=== PATIENT | male | born 1955 | race Caucasian/White ===

== ENCOUNTER 2023-12-01 15:10 | Inpatient (IN) | payer MEDICARE, OTHER ==
--- NOTE | 2023-12-01 15:34 | ED ---
General Adult HPI - General Chief complaint: Shortness of Breath Stated complaint: Abn Labs Time Seen by Provider: 12/01/23 15:15 Source: patient, EMS, RN notes reviewed, old records reviewed Mode of arrival: EMS Limitations: no limitations - History of Present Illness Initial comments: This 68-year-old male has a past medical history significant for COPD. Patient dates the last few days he has been having some difficulty breathing so he went to [facility] and they diagnosed him with pneumonia and a possible neoplasm. Patient states he was given a breathing treatment and steroids here and antibiotics and he is feeling somewhat better. Patient denies any chest pain or palpitations. Patient denies any fever or chills. Patient Nu[place] any back pain. Patient has abdominal pain patient has nausea vomiting diarrhea patient denies any calf tenderness or pedal edema - Related Data Home Medications Medication Instructions Recorded Confirmed Ibuprofen [Advil] 200 mg PO Q6HR PRN 12/02/13 12/03/13 Allergies Allergy/AdvReac Type Severity Reaction Status Date / Time No Known Allergies Allergy Verified 12/01/23 15:19 Review of Systems ROS Statement: Those systems with pertinent positive or pertinent negative responses have been documented in the HPI. ROS Other: All systems not noted in ROS Statement are negative. Past Medical History Past Medical History: COPD, Prostate Disorder History of Any Multi-Drug Resistant Organisms: None Reported Past Psychological History: No Psychological Hx Reported Smoking Status: Former smoker Past Alcohol Use History: None Reported Past Drug Use History: None Reported General Exam - General Exam Comments Initial Comments: GENERAL: Patient is well-developed and well-nourished. Patient is nontoxic and well- hydrated and is in no acute distress. ENT: Neck is soft and supple. No significant lymphadenopathy is noted. Oropharynx is clear. Moist mucous membranes. Neck has full range of motion without eliciting any pain. EYES: The sclera were anicteric and conjunctiva were pink and moist. Extraocular movements were intact and pupils were equal round and reactive to light. Eyelids were unremarkable. PULMONARY: Unlabored respirations. Good breath sounds bilaterally. No audible rales rhonchi or wheezing was noted. CARDIOVASCULAR: There is a regular rate and rhythm without any murmurs gallops or rubs. ABDOMEN: Soft and nontender with normal bowel sounds. SKIN: Skin is clear with no lesions or rashes and otherwise unremarkable. NEUROLOGIC: Patient is alert and oriented x3. Cranial nerves II through XII are grossly intact. Motor and sensory are also intact. Normal speech, volume and content. Symmetrical smile. MUSCULOSKELETAL: Normal extremities with adequate strength and full range of motion. LYMPHATICS: No significant lymphadenopathy is noted PSYCHIATRIC: Normal psychiatric evaluation. Limitations: no limitations Course Vital Signs 12/01/23 15:14 Temperature 98.4 F Pulse Rate 95 Respiratory 18 Rate Blood Pressure 115/75 O2 Sat by Pulse 92 L Oximetry Medical Decision Making - Medical Decision Making EKG is interpreted by myself. EKG shows a sinus rhythm at 91 bpm. DC interval is 149 QRS is 93 QT interval 343 QTc is 392. Patient's EKG shows no ST segment elevation or depression. Was pt. sent in by a medical professional or institution (, PA, CLINICAL TRIALS ASSISTANT, urgent care, hospital, or [facility]...) When possible be specific @ -Patient was sent to us by [facility] Did you speak to anyone other than the patient for history (EMS, parent, family, police, friend...)? What history was obtained from this source @ -I spoke with the ER physician prior to the patient's transfer Did you review nursing and triage notes (agree or disagree)? Why? @ -Yes notes were reviewed Were old charts reviewed (outside hosp., previous admission, EMS record, old EKG, old radiological studies, urgent care reports/EKG's, [facility] records)? Report findings @ -No old charts were reviewed Differential Diagnosis? @ -Differential Dyspnea: Coronary syndrome, arrhythmia, tamponade, asthma, COPD, pulmonary embolism, pneumonia, pneumothorax, pulmonary effusion, anaphylaxis, diabetic ketoacidosis, flailed chest, pulmonary contusion, diaphragmatic rupture, anemia, neuromuscular, this is not meant to be an all-inclusive list. EKG interpreted by me (3pts min.). @ -As above X-rays interpreted by me (1pt min.). @ -None done CT interpreted by me (1pt min.). @ -None done U/S interpreted by me (1pt. min.). @ -None done What testing was considered but not performed or refused? (CT, X-rays, U/S, labs)? Why? @ -None What meds were considered but not given or refused? Why? @ -None Did you discuss the management of the patient with other professionals (professionals i.e. , PA, CLINICAL TRIALS ASSISTANT, lab, RT, psych nurse, high school social studies teacher, home health aide caregiver, teacher, ecological technical officer, correctional case records supervisor)? Give summary @ -I spoke with Dr. Jaramillo he agreed to admit the patient Was smoking cessation discussed for >3mins.? @ -No Was critical care preformed (if so, how long)? @ -No Were there social determinants of health that impacted care today? How? (Homelessness, low income, unemployed, alcoholism, drug addiction, transportation, low edu. Level, literacy, decrease access to med. care, detention, rehab)? @ -No Was there de-escalation of care discussed even if they declined (Discuss DNR or withdrawal of care, Hospice)? DNR status @ -No What co-morbidities impacted this encounter? (DM, HTN, Smoking, COPD, CAD, Cancer, CVA, ARF, Chemo, Hep., AIDS, mental health diagnosis, sleep apnea, morbid obesity)? @ -None Was patient admitted / discharged? Hospital course, mention meds given and route, prescriptions, significant lab abnormalities, going to OR and other pertinent info. @ -Patient was feeling better at admission. Patient will be admitted for pneumonia Undiagnosed new problem with uncertain prognosis? @ -No Drug Therapy requiring intensive monitoring for toxicity (Heparin, Nitro, Insulin, Cardizem)? @ -No Were any procedures done? @ -No Diagnosis/symptom? @ -June Acute, or Chronic, or Acute on Chronic? @ -Acute Uncomplicated (without systemic symptoms) or Complicated (systemic symptoms)? @ -Complicated Side effects of treatment? @ -No Exacerbation, Progression, or Severe Exacerbation? @ -No Poses a threat to life or bodily function? How? (Chest pain, [place], [place], pneumonia, PE, COPD, DKA, ARF, appy, cholecystitis, CVA, Diverticulitis, Homicidal, Miller icidal, threat to staff... and all critical care pts) @ -This could lead to sepsis and endorgan dysfunction Diagnosis/symptom? @ -Default Acute, or Chronic, or Acute on Chronic? @ -Mass acute Uncomplicated (without systemic symptoms) or Complicated (systemic symptoms)? @ -Comp Side effects of treatment? @ -Gated hemoglobin Exacerbation, Progression, or Severe Exacerbation] @ -No Poses a threat to life or bodily function? @ -No - Lab Data Lab Results 12/01/23 Range/Units 15:48 Troponin I <0.012 (0.000-0.034) ng/mL Disposition Clinical Impression: Lung mass, Pneumonia Disposition: ADMITTED IP TO THIS HOSP Referrals: Jarek Hartley MD [Primary Care Provider] - 1-2 days Time of Disposition: 17:05
--- NOTE | 2023-12-01 17:04 | XR ---
EXAMINATION TYPE: XR chest 1V portable DATE OF EXAM: 12/01/2023 4:56 PM CLINICAL INDICATION: Male, 68 years old with history of copd, lung mass; [facility] COMPARISON: CT from same day TECHNIQUE: XR chest 1V portable Frontal view of the chest. FINDINGS: Lungs/Pleura: Left-sided airspace opacities. There is no evidence of pleural effusion, right focal co nsolidation, or pneumothorax. Pulmonary vascularity: Unremarkable. Heart/mediastinum: Cardiomediastinal silhouette is unremarkable. Musculoskeletal: No acute osseous pathology. IMPRESSION: Predominantly left-sided airspace opacities correlate for pneumonia. [facility], , 12/01/2023 5:02 PM
[2023-12-01] MEDS ORDERED: PNEUMONIA PROTOCOL UTILIZED 1 EACH MISC PO PRN (17:12)
[2023-12-01] MEDS ORDERED: DEXTROSE 50% SYRINGE 50 ML IVP PRN ×2 (17:17)
[2023-12-01] MEDS ORDERED: ALPRAZolam 0.25 MG TAB PO PRN (17:18)
[2023-12-01] MEDS ORDERED: HYDROcodone/APAP 5-325MG 1 EACH TAB PO PRN (17:18)
[2023-12-01 18:30] LABS: Glucose,Whole Blood 94 mg/dL (70-110)
[2023-12-01] MEDS: PIPERACILLIN-TAZOBACTAM 3.375 GM in SODIUM CHLORIDE 0.9% 100 ML IVPB SCH (18:32)
[2023-12-01] MEDS: methylPREDNISolone SOD SUCCI 125 MG/2 ML VIAL IV SCH (18:32)
[2023-12-01 18:34] LABS: Anisocytosis Slight; Basophils # (A) 0.1 k/uL (0-0.2); Basophils % (A) 0 %; Eosinophils % (A) 0 %; HCT 43.7 % (39.0-53.0); HGB 13.9 gm/dL (13.0-17.5); Lymphocytes # (A) 0.5 k/uL (1.0-4.8); Lymphocytes % (A) 2 %; MCH 26.5 pg (25.0-35.0); MCHC 31.7 g/dL (31.0-37.0); MCV 83.8 fL (80.0-100.0); Mean Platelet Volume 6.8; Monocytes # (A) 1.4 k/uL (0-1.0); Monocytes % (A) 5 %; Neutrophils # (A) 27.6 k/uL (1.3-7.7); Neutrophils % (A) 92 %; Platelet Count 408 k/uL (150-450); RBC 5.22 m/uL (4.30-5.90); RDW 16.4 % (11.5-15.5); WBC 29.9 k/uL (3.8-10.6)
[2023-12-01] MEDS: INSULIN ASPART (NovoLOG) 100 UNIT/ML VIAL SQ SCH (18:37)
[2023-12-01 18:48] LABS: African American GFR (CKD) >90 (>60 ml/min/1.73 sqM); Anion Gap 7 mmol/L; Blood Urea Nitrogen 17 mg/dL (9-20); Calcium 8.8 mg/dL (8.4-10.2); Carbon Dioxide 18 mmol/L (22-30); Chloride 107 mmol/L (98-107); Glucose 110 mg/dL (74-99); Non-African American GFR(CKD) >90 (>60 ml/min/1.73 sqM); Sodium 132 mmol/L (137-145)
[2023-12-01 18:58] LABS: Toxic Granulation Present
[2023-12-01] MEDS: IPRATROPIUM-ALBUTEROL 3 ML NEB INHALATION SCH (19:13)
[2023-12-01] MEDS: SYMBICORT 160-4.5 MCG INHALER INHALATION SCH (19:13)
[2023-12-01] MEDS: HEPARIN SODIUM,PORCINE 5,000 UNIT/ML 1 ML VIAL SQ SCH (21:09)
[2023-12-01] MEDS: ACETAMINOPHEN TAB 325 MG TAB PO PRN (21:09)
[2023-12-01 21:15] LABS: Glucose,Whole Blood 115 mg/dL (70-110)
--- NOTE | 2023-12-02 01:23 | P.CNPUL ---
History of Present Illness Consult date: 12/02/23 Requesting physician: Collins Swanson Reason for consult: pneumonia, lung mass Chief complaint: Shortness of, shortness of breath, cough, fever History of present illness: Patient is a 68-year-old male with past medical history significant for COPD and former tobacco dependence. His primary care provider is Dr. Jarek Hartley. He does have history of severe COPD, follows with an out-of-town information technology analyst Dr. Martin Cook. Utilizes a combination of Trelegy maintenance inhaler and albuterol rescue inhaler. Quit smoking approximately 4 years ago, prior to this was a heavy tobacco user 1 and half to 2 packs/day since he was a teenager. He does undergo low-dose lung cancer screening annually. Originally, presented to [facility] with shortness of breath that started 24 hours prior. He has had an associated cough with minimal yellow sputum production. He denied any [id number] fevers, however, was febrile on arrival to our emergency department following transfer. Chest CT at outside facility showed a large masslike consolidation within the lingula suspicious for neoplasm. Along, with diffuse opacities within the remainder of the left upper lobe. Increased irregular density in the posterior right upper lung field. Neoplasm versus pneumonia in the differential. Patient does present with infectious-like symptoms. He does have an elevated white blood cell count 29.9. The remainder the CBC unremarkable. BMP includes a sodium 132, potassium 4, chloride 107, serum bicarb 18, BUN 17, creatinine 0.67, glucose 110. Troponin less than 0.012. He has been empirically covered on azithromycin and Zosyn. Patient is currently resting comfortably in bed. Not in any respiratory distress. Nontoxic appearance. He is on 3 L/min nasal cannula. Note, that he routinely uses 2.5 liters nasal cannula at bedtime at home. Did have a temperature of 100.1 F, however, afebrile at the moment. Sputum sample is collected and at bedside. He denies any history of cancer. Denies any familial history of lung cancer. Carries over [id number] smoking history. Denies any weight loss. Denies chest pain or hemoptysis. Denies sick contacts. Denies recent travel. Review of Systems Constitutional: Reports fever, Denies chills, Denies fatigue, Denies night sweats, Denies poor appetite, Denies weight gain, Denies weight loss Ears, nose, mouth and throat: Denies dysphagia, Denies headache, Denies nasal congestion, Denies nasal discharge, Denies post-nasal drip, Denies sinus pain, Denies sinus pressure, Denies sore throat Cardiovascular: Reports dyspnea on exertion, Denies chest pain, Denies leg edema, Denies orthopnea, Denies palpitations, Denies syncope Respiratory: Reports as per HPI Gastrointestinal: Denies change in bowel habits, Denies constipation, Denies diarrhea, Denies loss of appetite, Denies nausea, Denies vomiting Genitourinary: Denies dysuria, Denies flank pain, Denies hematuria, Denies urinary frequency Musculoskeletal: Denies limitation of motion Integumentary: Denies rash Neurological: Denies balance difficulties, Denies confusion, Denies headaches, Denies memory loss, Denies seizures, Denies visual changes Psychiatric: Denies anxiety, Denies depression Past Medical History Past Medical History: COPD, Prostate Disorder Additional Past Medical History / Comment(s): bowel obstruction. History of Any Multi-Drug Resistant Organisms: None Reported Past Surgical History: Prostate Surgery Additional Past Surgical History / Comment(s): "prostate shaved down" Past Anesthesia/Blood Transfusion Reactions: No Reported Reaction Past Psychological History: No Psychological Hx Reported Smoking Status: Former smoker Past Alcohol Use History: None Reported Additional Past Alcohol Use History / Comment(s): patient quit smoking 4 years ago, smoked 1-2 packs for around 50 years. Past Drug Use History: None Reported - Past Family History Mother Additional Family Medical History / Comment(s): Mother from sepsis. Father History Unknown: Yes Medications and Allergies Home Medications Medication Instructions Recorded Confirmed Type Albuterol Sulfate [Albuterol 2 puff PO RT-Q6H PRN 12/01/23 12/01/23 History Sulfate Hfa] Aspirin EC [Ecotrin Low Dose] 81 mg PO DAILY 12/01/23 12/01/23 History Atorvastatin [Lipitor] 20 mg PO DAILY 12/01/23 12/01/23 History Fluticasone/Umeclidin/Vilanter 1 puff INHALATION RT-DAILY 12/01/23 12/01/23 History [Trelegy Ellipta 200-62.5-25] Montelukast [Singulair] 10 mg PO DAILY 12/01/23 12/01/23 History Tamsulosin [Flomax] 0.4 mg PO DAILY 12/01/23 12/01/23 History predniSONE [Deltasone] 20 mg PO DAILY PRN 12/01/23 12/01/23 History Allergies Allergy/AdvReac Type Severity Reaction Status Date / Time No Known Allergies Allergy Verified 12/01/23 18:06 Physical Exam Vitals: Vital Signs Temp Pulse Resp BP Pulse Ox 12/01/23 21:44 97.9 F 115 H 24 134/76 92 L 12/01/23 20:29 100.1 F H 115 H 20 127/75 90 L 12/01/23 19:33 86 12/01/23 19:14 92 96 12/01/23 15:14 98.4 F 95 18 115/75 92 L Intake and Output 12/01/23 12/01/23 12/02/23 14:59 22:59 06:59 Other: Weight 67.585 kg GENERAL EXAM: Alert, 68-year-old white male, well-nourished, comfortable in no apparent distress. HEAD: Normocephalic and atraumatic EYES: Normal reaction of pupils, equal size. NOSE: Clear with pink turbinates. THROAT: No erythema or exudates. NECK: No masses, no JVD. CHEST: Barrel chest LUNGS: Equal air entry with minimal inspiratory crackles auscultated on the left. No focal dullness, wheezing, rhonchi. On 3 L/min nasal cannula. Tachypneic with conversation. No accessory muscle use. CVS: S1 and S2 normal with no audible murmur, regular rhythm. No extra heart sounds ABDOMEN: No hepatosplenomegaly, active bowel sounds, no guarding or rigidity. SPINE: No scoliosis or deformity SKIN: No rashes CENTRAL NERVOUS SYSTEM: No focal deficits, tone is normal in all 4 extremities. EXTREMITIES: There is no peripheral edema, clubbing, or cyanosis. Peripheral pulses are intact. Results - Laboratory Findings CBC and BMP: 12/01/23 18:25 12/01/23 15:48 PT/INR, D-dimer D-Dimer 1.23 mg/L FEU (<0.60) H 12/01/23 18:25 Abnormal lab findings: Abnormal Labs 12/01/23 12/01/23 12/01/23 15:48 18:25 18:25 WBC 29.9 H RDW 16.4 H Neutrophils # 27.6 H Lymphocytes # 0.5 L Monocytes # 1.4 H D-Dimer 1.23 H Sodium 132 L Carbon Dioxide 18 L Glucose 110 H POC Glucose (mg/dL) 12/01/23 21:13 WBC RDW Neutrophils # Lymphocytes # Monocytes # D-Dimer Sodium Carbon Dioxide Glucose POC Glucose (mg/dL) 115 H - Diagnostic Findings Chest x-ray: image reviewed CT scan - chest: image reviewed Assessment and Plan Assessment: Left sided masslike consolidation and suspected community-acquired pneumonia, Chest CT at outside facility showed a large masslike consolidation within the lingula suspicious for neoplasm. Along, with diffuse opacities within the remainder of the left upper lobe. Increased irregular density in the posterior right upper lung field. Underlying neoplasm certainly not excluded. Acute COPD exacerbation, secondary to above Acute on chronic hypoxemic respiratory failure, secondary to above Acute febrile illness Acute leukocytosis Former tobacco dependence History of hyperlipidemia History of BPH Plan: Patient's medications, labs, imaging reviewed Chest CT findings reviewed. Patient presents with leukocytosis and intermittent fevers. He is being treated for community-acquired pneumonia. The possibility of underlying neoplasm is certainly not excluded. No previous chest CT for comparison. Case will be discussed with Dr. Ortiz. Continue supplemental oxygen maintain oxygen saturation of 92% or greater Continue combination of bronchodilators, Symbicort inhaler, and IV Solu-Medrol Continue empiric antibiotics for CAP Sputum sample is pending Blood cultures pending Urine Legionella antigen to be collected Check procalcitonin level GI prophylaxis: Protonix DVT prophylaxis: Heparin subcu Further recommendations will be forthcoming. I have personally seen and examined the patient, performed the documentation and the assessment and plan as written. Number of minutes spent on the visit:20 Time with Patient: Greater than 30
[2023-12-02 02:31] LABS: Anisocytosis Slight; Basophils # (A) 0.1 k/uL (0-0.2); Basophils % (A) 0 %; Eosinophils % (A) 0 %; HCT 40.2 % (39.0-53.0); HGB 13.3 gm/dL (13.0-17.5); Lymphocytes # (A) 0.4 k/uL (1.0-4.8); Lymphocytes % (A) 2 %; MCH 27.9 pg (25.0-35.0); MCHC 33.2 g/dL (31.0-37.0); MCV 84.1 fL (80.0-100.0); Mean Platelet Volume 7.2; Monocytes # (A) 1.1 k/uL (0-1.0); Monocytes % (A) 5 %; Neutrophils # (A) 20.6 k/uL (1.3-7.7); Neutrophils % (A) 92 %; Platelet Count 359 k/uL (150-450); RBC 4.78 m/uL (4.30-5.90); RDW 16.6 % (11.5-15.5); WBC 22.4 k/uL (3.8-10.6)
[2023-12-02 02:55] LABS: ALT 32 U/L (4-49); AST 23 U/L (17-59); African American GFR (CKD) >90 (>60 ml/min/1.73 sqM); Alkaline Phosphatase 89 U/L (38-126); Anion Gap 11 mmol/L; Blood Urea Nitrogen 20 mg/dL (9-20); Calcium 8.8 mg/dL (8.4-10.2); Carbon Dioxide 17 mmol/L (22-30); Chloride 105 mmol/L (98-107); Glucose 139 mg/dL (74-99); Non-African American GFR(CKD) >90 (>60 ml/min/1.73 sqM); Sodium 133 mmol/L (137-145); Total Bilirubin 1.4 mg/dL (0.2-1.3); Total Protein 5.5 g/dL (6.3-8.2)
--- NOTE | 2023-12-02 03:52 | HP ---
HISTORY AND PHYSICAL CHIEF COMPLAINT: Shortness of breath and cough. HISTORY OF PRESENT ILLNESS: This 68-year-old gentleman with a past medical history of multiple medical problems including COPD, prostate disorder, being followed by Dr. Navarrete in the outpatient setting, was having increased shortness of breath. The patient apparently went to [facility] and was found to have a suspicious lung mass and was referred to [facility] for evaluation and treatment. Chest x-ray showed significant pneumonic infiltrates also on the left side. There is no history of fever, rigors, or chills. PAST MEDICAL HISTORY: Reviewed include COPD and prostate disorder. HOME MEDICATIONS: List is not available. ALLERGIES: None. FAMILY HISTORY: No history of heart disease or strokes in the family. SOCIAL HISTORY: Previous history of smoking. REVIEW OF SYSTEMS: Fourteen-point review is negative except as mentioned earlier. PHYSICAL EXAMINATION: VITAL SIGNS: Pulse is 95, blood pressure 115/70, respirations 18. HEENT: Conjunctivae normal. NECK: No jugular venous distention. CARDIOVASCULAR: S1, S2 normal. RESPIRATIONS: Few scattered rhonchi and crackles. ABDOMEN: Soft. LABORATORY DATA: Awaited. ASSESSMENT: 1. Severe shortness of breath with chronic obstructive pulmonary disease acute exacerbation. 2. Possible left lung mass. 3. Extensive pneumonia of the left lung of undetermined etiology possibly postobstructive. 4. History of prostate disorder. 5. nicotine dependence. RECOMMENDATION: This 68-year-old gentleman presented with multiple complex medical issues, we will monitor the patient closely. Continue the current medications. We will recommend bronchodilators, antibiotics, steroids, as well as consulted Oncology as well as Dr. Way for evaluation of lung mass and home medications will be continued. Prognosis guarded because of multiple complex medical issues. Discussed with family at length. Further recommendations to follow. MMODL / IJN: [id number] / MTDD
[2023-12-02 06:23] LABS: Glucose,Whole Blood 122 mg/dL (70-110)
[2023-12-02] MEDS: AZITHROMYCIN 500 MG TAB PO SCH (08:28)
[2023-12-02] MEDS: PANTOPRAZOLE 40 MG TABLET PO SCH (08:28)
--- NOTE | 2023-12-02 09:31 | XR ---
EXAMINATION TYPE: XR chest 1V portable DATE OF EXAM: 12/02/2023 Comparison: 12/01/2023 Clinical History: 68-year-old male pneumonia Findings: Hyperinflation. Left heart margin obscured by worsening airspace opacity throughout the left hemithor ax, now very dense in the left upper lobe. Impression: COPD with worsening pneumonia on the left. [facility], , 12/02/2023 9:29 AM
[2023-12-02 12:00] LABS: Glucose,Whole Blood 124 mg/dL (70-110)
--- NOTE | 2023-12-02 15:19 | CT ---
EXAMINATION TYPE: CT chest angio for PE DATE OF EXAM: 12/02/2023 COMPARISON: None HISTORY: pna?, shortness of breath CT DLP: 389.5 mGycm Automated exposure control for dose reduction was used. CONTRAST: CT Chest for pulmonary embolism performed with with IV Contrast, patient injected with 65ml mL of Iso fabi 370. FINDINGS: There is a large partially consolidative and interstitial opacity involving the left upper lobe consi stent with a lobar pneumonia. There is a 2 cm spiculated mass in the right upper lobe lung suspicious for neoplasm. There is no damian ling defect within the pulmonary arterial circulation to suggest pulmonary embolism. The thoracic aor ta is normal0. There is no mediastinal, hilar or axillary adenopathy. Limited scanning through the upper abdomen reveals no gross abnormality. No focal osseous lesions are seen. IMPRESSION: 1. No evidence of pulmonary embolus. 2. Left upper lobe partially consolidative and interstitial opacity consistent with acute pneumonia. 3. 2 cm spiculated mass in the right upper lobe suspicious for neoplasm and PET scan is recommended f or further evaluation. [facility], , 12/02/2023 3:16 PM
--- NOTE | 2023-12-02 15:26 | P.CONS ---
History of Present Illness - Reason for Consult Consult date: 12/02/23 r/o lung mass Requesting physician: Collins Swanson - Chief Complaint SOB, cough - History of Present Illness Patient is a 68-year-old male with a significant history of COPD and former nicotine dependence. Patient presented to [facility] with complaints of cough and shortness of breath. Patient reports he was having productive sputum but denies hemoptysis and was also having wheezing at which time he presented to the hospital for further evaluation. CTA chest was obtained revealing interval development of a large heterogeneous consolidation within the lingula. Small irregular area of increased density within the posterior right upper lung field. And scattered small lymph nodes within the mediastinum. Chest x-ray showing predominantly left-sided airspace opacities. Pulmonology following. Patient has been started on IV antibiotics, bronchod ilators and steroids. Tmax on admission was 100.1. SpO2 92% on 3 L. Leukocytosis improving, WBC 22.4 today from 29.9. Hemoglobin 13.3, platelets 359,000. Creatinine 0.66, GFR > 90. Troponin negative. Review of Systems 10 point ROS is negative except as stated in the HPI Past Medical History Past Medical History: COPD, Prostate Disorder Additional Past Medical History / Comment(s): bowel obstruction. History of Any Multi-Drug Resistant Organisms: None Reported Past Surgical History: Prostate Surgery Additional Past Surgical History / Comment(s): "prostate shaved down" Past Anesthesia/Blood Transfusion Reactions: No Reported Reaction Past Psychological History: No Psychological Hx Reported Smoking Status: Former smoker Past Alcohol Use History: None Reported Additional Past Alcohol Use History / Comment(s): patient quit smoking 4 years ago, smoked 1-2 packs for around 50 years. Past Drug Use History: None Reported - Past Family History Mother Additional Family Medical History / Comment(s): Mother from sepsis. Father History Unknown: Yes Medications and Allergies Home Medications Medication Instructions Recorded Confirmed Type Albuterol Sulfate [Albuterol 2 puff PO RT-Q6H PRN 12/01/23 12/01/23 History Sulfate Hfa] Aspirin EC [Ecotrin Low Dose] 81 mg PO DAILY 12/01/23 12/01/23 History Atorvastatin [Lipitor] 20 mg PO DAILY 12/01/23 12/01/23 History Fluticasone/Umeclidin/Vilanter 1 puff INHALATION RT-DAILY 12/01/23 12/01/23 History [Delmer Taota 200-62.5-25] Montelukast [Singulair] 10 mg PO DAILY 12/01/23 12/01/23 History Tamsulosin [Flomax] 0.4 mg PO DAILY 12/01/23 12/01/23 History predniSONE [Deltasone] 20 mg PO DAILY PRN 12/01/23 12/01/23 History Allergies Allergy/AdvReac Type Severity Reaction Status Date / Time No Known Allergies Allergy Verified 12/01/23 18:06 Physical Exam Vitals: Vital Signs Temp Pulse Pulse Resp BP BP Pulse Ox 12/02/23 11:23 92 18 12/02/23 11:16 92 16 12/02/23 08:20 94 24 12/02/23 08:00 98.2 F 98 18 147/87 92 L 12/02/23 07:45 80 16 12/02/23 07:36 82 16 12/02/23 02:11 97.9 F 92 22 115/74 94 L 12/01/23 21:44 97.9 F 115 H 24 134/76 92 L 12/01/23 20:29 100.1 F H 115 H 20 127/75 90 L 12/01/23 19:33 86 12/01/23 19:14 92 96 12/01/23 15:14 98.4 F 95 18 115/75 92 L Intake and Output 12/01/23 12/02/23 12/02/23 22:59 06:59 14:59 Intake Total 200 Balance 200 Intake: Intake, IV Titration 200 Amount Piperacillin-Tazobactam 3 200 .375 gm In Sodium Chloride 0.9% 100 ml @ 25 mls/hr IVPB Q8HR [facility] Rx# :[id number] Other: Voiding Method Toilet Toilet Urinal Urinal # Voids 2 Weight 67.585 kg - Constitutional General appearance: average body habitus, no acute distress - EENT Eyes: anicteric sclerae, EOMI ENT: hearing grossly normal - Respiratory Respiratory: bilateral: CTA - Cardiovascular Rhythm: regular Abnormal Heart Sounds: systolic murmur - Gastrointestinal General gastrointestinal: soft, no tenderness - Integumentary Integumentary: no cyanotic, no jaundiced - Neurologic Neurologic: CNII-XII intact - Musculoskeletal Musculoskeletal: strength equal bilaterally - Psychiatric Psychiatric: A&O x's 3 Results CBC & Chem 7: 12/02/23 01:25 12/02/23 01:25 Labs: Abnormal Lab Results - Last 24 Hours (Table) 12/01/23 12/01/23 12/01/23 Range/Units 15:48 18:25 18:25 WBC 29.9 H (3.8-10.6) k/uL RDW 16.4 H (11.5-15.5) % Neutrophils # 27.6 H (1.3-7.7) k/uL Lymphocytes # 0.5 L (1.0-4.8) k/uL Monocytes # 1.4 H (0-1.0) k/uL D-Dimer 1.23 H (<0.60) mg/L FEU Sodium 132 L (137-145) mmol/L Carbon Dioxide 18 L (22-30) mmol/L Glucose 110 H (74-99) mg/dL POC Glucose (mg/dL) (70-110) mg/dL Hemoglobin A1c (<=6.0) % Total Bilirubin (0.2-1.3) mg/dL Total Protein (6.3-8.2) g/dL Albumin (3.5-5.0) g/dL Procalcitonin (0.02-0.50) ng/mL 12/01/23 12/02/23 12/02/23 Range/Units 21:13 01:25 01:25 WBC 22.4 H (3.8-10.6) k/uL RDW 16.6 H (11.5-15.5) % Neutrophils # 20.6 H (1.3-7.7) k/uL Lymphocytes # 0.4 L (1.0-4.8) k/uL Monocytes # 1.1 H (0-1.0) k/uL D-Dimer (<0.60) mg/L FEU Sodium (137-145) mmol/L Carbon Dioxide (22-30) mmol/L Glucose (74-99) mg/dL POC Glucose (mg/dL) 115 H (70-110) mg/dL Hemoglobin A1c 6.8 H (<=6.0) % Total Bilirubin (0.2-1.3) mg/dL Total Protein (6.3-8.2) g/dL Albumin (3.5-5.0) g/dL Procalcitonin (0.02-0.50) ng/mL 12/02/23 12/02/23 12/02/23 Range/Units 01:25 01:25 06:21 WBC (3.8-10.6) k/uL RDW (11.5-15.5) % Neutrophils # (1.3-7.7) k/uL Lymphocytes # (1.0-4.8) k/uL Monocytes # (0-1.0) k/uL D-Dimer (<0.60) mg/L FEU Sodium 133 L (137-145) mmol/L Carbon Dioxide 17 L (22-30) mmol/L Glucose 139 H (74-99) mg/dL POC Glucose (mg/dL) 122 H (70-110) mg/dL Hemoglobin A1c (<=6.0) % Total Bilirubin 1.4 H (0.2-1.3) mg/dL Total Protein 5.5 L (6.3-8.2) g/dL Albumin 3.0 L (3.5-5.0) g/dL Procalcitonin 2.20 H (0.02-0.50) ng/mL Chest x-ray: report reviewed CT scan - chest: report reviewed Assessment and Plan (1) Lung mass Current Visit: Yes Status: Acute Priority: High Code(s): R91.8 - OTHER NONSPECIFIC ABNORMAL FINDING OF LUNG FIELD SNOMED Code(s): 965191316 (2) Pneumonia Current Visit: Yes Status: Acute Priority: High Code(s): J18.9 - PNEUMONIA, UNSPECIFIED ORGANISM SNOMED Code(s): 018489992 Plan: Pneumonia vs lung mass: Presented to [facility] with complaints of productive cough and shortness of breath. -CTA chest was obtained revealing interval development of a large heterogeneous consolidation within the lingula suspicious. Small irregular area of increased density within the posterior right upper lung field. And scattered small lymph nodes within the mediastinum. Chest x-ray showing predominantly left-sided airspace opacities. -Pulmonology following. Patient has been started on IV antibiotics, bronchodilators and steroids. Tmax 100.1. SpO2 92% on 3L -Leukocytosis improving, WBC 22.4 today from 29.9 -Sputum culture pending -Scans discussed with patient and spouse, concerns for infectious process vs malignancy. However, with low grade fever, leukocytosis, and acute onset of symptoms, pneumonia appears to be more likely. If improvement is not noted despite abx and supportive medications, patient would likely need bronchoscopy/biopsy for further evaluation. Will defer this to pulm medicine team -Will continue to f/u course of hospitalization and pulm recommendations attests: I have seen and examined patient, performed H&P, developed impression and plan of care. Discussed with dictator. Agree with documentation, dictated as a scribe
[2023-12-02 16:36] LABS: Glucose,Whole Blood 146 mg/dL (70-110)
[2023-12-02 19:28] LABS: Glucose,Whole Blood 148 mg/dL (70-110)
[2023-12-02 20:23] LABS: Appearance,Urine Clear (Clear); Bilirubin,Urine Negative (Negative); Blood,Urine Small (Negative); Color,Urine Yellow; Glucose,Urine (UA) 3+ (Negative); Ketones,Urine Trace (Negative); Leukocyte Esterase,Urine Negative (Negative); Mucus,Urine Rare /hpf; Nitrite,Urine Negative (Negative); Protein,Urine 1+ (Negative); RBC,Urine 6 /hpf (0-5); Specific Gravity,Urine 1.031 (1.001-1.035); Squamous Epithelial Cell,Urine 1 /hpf (0-4); WBC,Urine 10 /hpf (0-5)
[2023-12-03 01:25] LABS: Anisocytosis Slight; Basophils % (A) 0 %; Eosinophils % (A) 0 %; HGB 12.1 gm/dL (13.0-17.5); Lymphocytes # (A) 0.3 k/uL (1.0-4.8); Lymphocytes % (A) 2 %; MCH 27.3 pg (25.0-35.0); MCHC 33.7 g/dL (31.0-37.0); Mean Platelet Volume 7.4; Monocytes # (A) 0.7 k/uL (0-1.0); Monocytes % (A) 3 %; Neutrophils # (A) 19.5 k/uL (1.3-7.7); Neutrophils % (A) 94 %; Platelet Count 340 k/uL (150-450); RBC 4.45 m/uL (4.30-5.90); RDW 16.6 % (11.5-15.5); WBC 20.6 k/uL (3.8-10.6)
--- NOTE | 2023-12-03 01:35 | PN ---
PROGRESS NOTE DATE OF SERVICE: 12/02/2023 SUBJECTIVE: This is a 68-year-old gentleman admitted with severe shortness of breath, COPD acute exacerbation, also had left lung mass. The patient is on broad-spectrum IV antibiotics. No chest pain. No palpitation. OBJECTIVE: VITAL SIGNS: Pulse is 94, blood pressure 140/76, respirations 18. CHEST: A few scattered rhonchi and crackles. ABDOMEN: Soft. NERVOUS SYSTEM: Nonfocal. LABORATORY DATA: WBC 22.4, sodium is 133. D-dimer is 1.23. Procalcitonin is 2.20. ASSESSMENT: 1. Severe shortness of breath, chronic obstructive pulmonary disease acute exacerbation. 2. Possible left lung mass versus consolidation. 3. Extensive pneumonia of the left lung of undetermined etiology, possibly postobstructive. 4. History of prostate disorder. 5. Elevated procalcitonin. RECOMMENDATIONS: Recommend to continue current management and continue symptomatic treatment. Otherwise, also recommend CT angio of the chest. Otherwise, closely follow with Hematology, Oncology and as well as Pulmonology. Repeat labs, steroids, bronchodilators. Prognosis guarded. Further recommendations to follow. MMODL / IJN: [id number] /
[2023-12-03 03:17] LABS: Anion Gap 6 mmol/L; Blood Urea Nitrogen 23 mg/dL (9-20); Carbon Dioxide 22 mmol/L (22-30); Chloride 107 mmol/L (98-107); Glucose 116 mg/dL (74-99); Potassium 3.8 mmol/L (3.5-5.1); Sodium 135 mmol/L (137-145)
[2023-12-03 03:18] LABS: African American GFR (CKD) >90 (>60 ml/min/1.73 sqM); Calcium 9.1 mg/dL (8.4-10.2); Non-African American GFR(CKD) >90 (>60 ml/min/1.73 sqM)
[2023-12-03 06:06] LABS: Glucose,Whole Blood 135 mg/dL (70-110)
[2023-12-03] MEDS: ASPIRIN 81 MG PO SCH (08:13)
[2023-12-03] MEDS: MONTELUKAST 10 MG TAB PO SCH (08:13)
[2023-12-03] MEDS: ATORVASTATIN 20 MG TAB PO SCH (08:13)
[2023-12-03] MEDS: TAMSULOSIN 0.4 MG CAP.ER.24H PO SCH (08:13)
[2023-12-03 10:58] LABS: Glucose,Whole Blood 130 mg/dL (70-110)
--- NOTE | 2023-12-03 12:01 | P.PN ---
Subjective Progress Note Date: 12/03/23 Principal diagnosis: Pneumonia. Patient is a 68-year-old male with past medical history significant for COPD and former tobacco dependence. His primary care provider is Dr. Jarek Hartley. He does have history of severe COPD, follows with an out-of-town semiconductors wafer breaker Dr. Martin Cook. Utilizes a combination of Trelegy maintenance inhaler and albuterol rescue inhaler. Quit smoking approximately 4 years ago, prior to this was a heavy tobacco user 1 and half to 2 packs/day since he was a teenager. He does undergo low-dose lung cancer screening annually. Originally, presented to [facility] with shortness of breath that started 24 hours prior. He has had an associated cough with minimal yellow sputum production. He denied any qde-qi-cwxrzvgm fevers, however, was febrile on arrival to our emergency department following transfer. Chest CT at outside facility showed a large masslike consolidation within the lingula suspicious for neoplasm. Along, with diffuse opacities within the remainder of the left upper lobe. Increased irregular density in the posterior right upper lung field. Neoplasm versus pneumonia in the differential. Patient does present with infectious-like symptoms. He does have an elevated white blood cell count 29.9. The remainder the CBC unremarkable. BMP includes a sodium 132, potassium 4, chloride 107, serum bicarb 18, BUN 17, creatinine 0.67, glucose 110. Troponin less than 0.012. He has been empirically covered on azithromycin and Zosyn. Patient is currently resting comfortably in bed. Not in any respiratory distress. Nontoxic appearance. He is on 3 L/min nasal cannula. Note, that he routinely uses 2.5 liters nasal cannula at bedtime at home. Did have a temperature of 100.1 F, however, afebrile at the moment. Sputum sample is collected and at bedside. He denies any history of cancer. Denies any familial history of lung cancer. Carries over [id number]-nvfw smoking history. Denies any weight loss. Denies chest pain or hemoptysis. Denies sick contacts. Denies recent travel. Progress note dated December 03, 2023. 68-year-old male seen in the observation unit, room 151. He states that he is feeling better. He is on 2 L of oxygen. No IV fluids. His procalcitonin level was elevated at 2.20. He continues on Zosyn, we ordered a chest x-ray for tomorrow. His cough is wet. Current labs include a white count 20.6, hemoglobin 12.1, hematocrit 36.0, and a normal platelet count. Sodium 135, potassium 3.8, chloride 107, CO2 22, BUN 23, creatinine 0.67. Glucose is 130. Thus far, culture data is negative. Objective - Vital Signs Vital signs: Vital Signs Temp 97.8 F 12/03/23 07:58 Pulse 88 12/03/23 11:32 Resp 16 12/03/23 07:58 BP 124/76 12/03/23 07:58 Pulse Ox 95 12/03/23 07:58 FiO2 Intake & Output 12/02/23 12/03/23 12/03/23 18:59 06:59 18:59 Intake Total 340 Output Total 600 Balance -260 Intake: Intake, IV Titration 100 Amount Piperacillin-Tazobactam 3 100 .375 gm In Sodium Chloride 0.9% 100 ml @ 25 mls/hr IVPB Q8HR [facility] Rx# :[id number] Oral 240 Output: Urine 600 Other: Voiding Method Toilet Toilet Urinal Urinal - Exam No acute distress, oriented 3. No respiratory distress. Cough is wet and congested. HEENT examination is grossly unremarkable. Mucous membranes are moist. No oral lesions. Neck supple. Full range of motion. No adenopathy thyromegaly or neck vein distention. Cardiovascular examination reveals regular rhythm rate. S1-S2 normal. No S3 or S4. No discernible murmur noted. Lungs reveal bilateral rhonchi. No wheezes or crackles. 2 L saturation is 96%. Abdomen soft bowel sounds are heard. No masses or tenderness. Extremities are intact. No cyanosis clubbing or edema. Skin is without rash or lesion. Neurologic examination is brief but nonfocal. - Labs CBC & Chem 7: 12/03/23 00:32 12/03/23 00:32 Labs: Abnormal Lab Results - Last 24 Hours (Table) 12/02/23 12/02/23 12/02/23 Range/Units 11:58 16:35 19:28 WBC (3.8-10.6) k/uL Hgb (13.0-17.5) gm/dL Hct (39.0-53.0) % RDW (11.5-15.5) % Neutrophils # (1.3-7.7) k/uL Lymphocytes # (1.0-4.8) k/uL Sodium (137-145) mmol/L BUN (9-20) mg/dL Glucose (74-99) mg/dL POC Glucose (mg/dL) 124 H 146 H 148 H (70-110) mg/dL Urine Protein (Negative) Urine Glucose (UA) (Negative) Urine Ketones (Negative) Urine Blood (Negative) Urine RBC (0-5) /hpf Urine WBC (0-5) /hpf Urine Mucus (None) /hpf 12/02/23 12/03/23 12/03/23 Range/Units 19:50 00:32 00:32 WBC 20.6 H (3.8-10.6) k/uL Hgb 12.1 L (13.0-17.5) gm/dL Hct 36.0 L (39.0-53.0) % RDW 16.6 H (11.5-15.5) % Neutrophils # 19.5 H (1.3-7.7) k/uL Lymphocytes # 0.3 L (1.0-4.8) k/uL Sodium 135 L (137-145) mmol/L BUN 23 H (9-20) mg/dL Glucose 116 H (74-99) mg/dL POC Glucose (mg/dL) (70-110) mg/dL Urine Protein 1+ H (Negative) Urine Glucose (UA) 3+ H (Negative) Urine Ketones Trace H (Negative) Urine Blood Small H (Negative) Urine RBC 6 H (0-5) /hpf Urine WBC 10 H (0-5) /hpf Urine Mucus Rare H (None) /hpf 12/03/23 12/03/23 Range/Units 06:05 10:57 WBC (3.8-10.6) k/uL Hgb (13.0-17.5) gm/dL Hct (39.0-53.0) % RDW (11.5-15.5) % Neutrophils # (1.3-7.7) k/uL Lymphocytes # (1.0-4.8) k/uL Sodium (137-145) mmol/L BUN (9-20) mg/dL Glucose (74-99) mg/dL POC Glucose (mg/dL) 135 H 130 H (70-110) mg/dL Urine Protein (Negative) Urine Glucose (UA) (Negative) Urine Ketones (Negative) Urine Blood (Negative) Urine RBC (0-5) /hpf Urine WBC (0-5) /hpf Urine Mucus (None) /hpf Microbiology - Last 24 Hours (Table) 12/02/23 00:37 Gram Stain - Preliminary Sputum Sputum Culture - Preliminary 12/01/23 17:21 Blood Culture - Preliminary Blood Assessment and Plan Assessment: Left sided masslike consolidation and suspected community-acquired pneumonia. Possible mass, left lung. Acute COPD exacerbation. Acute on chronic hypoxemic respiratory failure. Acute febrile illness. Acute leukocytosis. Former tobacco dependence. History of hyperlipidemia. History of BPH. Plan: Plan dated December 03, 2023. The patient is seen today in room 151. The patient is on 2 L. He is feeling better. His procalcitonin level was elevated 2.20. He continues on Zosyn. He is feeling better. No IV fluids. A chest x-ray is ordered for tomorrow. I mention to him today, that pneumonia, the gets better with antibiotics, is pneu monia. Pneumonia that does not get better with antibiotics, means something else, in this case, possible cancer. Additional recommendations and suggestions are forthcoming. We will continue to follow. Time with Patient: Less than 30
[2023-12-03 16:04] LABS: Glucose,Whole Blood 172 mg/dL (70-110)
[2023-12-03 21:11] LABS: Glucose,Whole Blood 122 mg/dL (70-110)
--- NOTE | 2023-12-04 00:29 | PN ---
PROGRESS NOTE DATE OF SERVICE: 12/03/2023 SUBJECTIVE: This is a 68-year-old gentleman admitted with extensive pneumonia on the left side, is being closely monitored on IV antibiotics. No chest pain. No palpitation. Mass-like consolidation is suspected. OBJECTIVE: VITAL SIGNS: Pulse 80, blood pressure 124/70, respirations 16. CHEST: A few scattered rhonchi and crackles. ABDOMEN: Soft. NERVOUS SYSTEM: Nonfocal. LABORATORY DATA: WBC 20.6. ASSESSMENT: 1. Severe shortness of breath, chronic obstructive pulmonary disease acute exacerbation. 2. Left lung mass versus masslike consolidation, gram-negative pneumonia. 3. Extensive pneumonia of the left lung of undetermined etiology, possibly postobstructive versus gram-negative. 4. History of prostate disorder. 5. Elevated procalcitonin. RECOMMENDATIONS AND DISCUSSION: I recommend to continue current medications and continue symptomatic treatment. Otherwise, continue to monitor. Continue the antibiotics. Await PSA. Closely follow with Pulmonary. Prognosis guarded. Further recommendations to follow. MMODL / IJN: [id number] /
[2023-12-04 04:36] LABS: Mycoplasma IgG Antibody (EIA) 0.6 INDEX (<=0.90); Mycoplasma IgM Antibody 0.13 INDEX (<=0.90)
[2023-12-04 05:51] LABS: Glucose,Whole Blood 114 mg/dL (70-110)
--- NOTE | 2023-12-04 09:02 | XR ---
EXAMINATION TYPE: XR chest 2V DATE OF EXAM: 12/04/2023 COMPARISON: 12/02/2023 HISTORY: 68-year-old male follow-up pneumonia TECHNIQUE: PA and lateral views FINDINGS: Heart normal size. Hyperinflation. Patchy opacity throughout the left lung shows partial improvement from 2 days ago with less confluent appearance. Hyperinflation. No pleural effusion. IMPRESSION: Persistent but improving pneumonia throughout the left lung. Background COPD. [facility], , 12/04/2023 8:59 AM
[2023-12-04 11:48] LABS: Glucose,Whole Blood 181 mg/dL (70-110)
--- NOTE | 2023-12-04 14:13 | P.PN ---
Subjective Progress Note Date: 12/04/23 Patient is a 68-year-old male with past medical history significant for COPD and former tobacco dependence. His primary care provider is Dr. Jarek Hartley. He does have history of severe COPD, follows with an out-of-town system analyst Dr. Martin Cook. Utilizes a combination of Trelegy maintenance inhaler and albuterol rescue inhaler. Quit smoking approximately 4 years ago, prior to this was a heavy tobacco user 1 and half to 2 packs/day since he was a teenager. He does undergo low-dose lung cancer screening annually. Originally, presented to [facility] with shortness of breath that started 24 hours prior. He has had an associated cough with minimal yellow sputum production. He denied any plf-cg-yczxyxwd fevers, however, was febrile on arrival to our emergency department following transfer. Chest CT at outside facility showed a large masslike consolidation within the lingula suspicious for neoplasm. Along, with diffuse opacities within the remainder of the left upper lobe. Increased irregular density in the posterior right upper lung field. Neoplasm versus pneumonia in the differential. Patient does present with infectious-like symptoms. He does have an elevated white blood cell count 29.9. The remainder the CBC unremarkable. BMP includes a sodium 132, potassium 4, chloride 107, serum bicarb 18, BUN 17, creatinine 0.67, glucose 110. Troponin less than 0.012. He has been empirically covered on azithromycin and Zosyn. Patient is currently resting comfortably in bed. Not in any respiratory distress. Nontoxic appearance. He is on 3 L/min nasal cannula. Note, that he routinely uses 2.5 liters nasal cannula at bedtime at home. Did have a temperature of 100.1 F, however, afebrile at the moment. Sputum sample is collected and at bedside. He denies any history of cancer. Denies any familial history of lung cancer. Carries over 46-yfqt-ydcg smoking history. Denies any weight loss. Denies chest pain or hemoptysis. Denies sick contacts. Denies recent travel. Progress note dated December 03, 2023. 68-year-old male seen in the observation unit, room 151. He states that he is feeling better. He is on 2 L of oxygen. No IV fluids. His procalcitonin level was elevated at 2.20. He continues on Zosyn, we ordered a chest x-ray for hua akins. His cough is wet. Current labs include a white count 20.6, hemoglobin 12.1, hematocrit 36.0, and a normal platelet count. Sodium 135, potassium 3.8, chloride 107, CO2 22, BUN 23, creatinine 0.67. Glucose is 130. Thus far, culture data is negative. The patient is seen today December 04, 2023 in follow-up on the regular medical floor. He is currently sitting up in bed. Awake and alert in no acute distress. Breathing better today compared to yesterday. Less cough and congestion. He is maintaining O2 saturations in the 90s on 2 L/min per nasal cannula. Follow-up chest x-ray shows persistent but improving pneumonia throughout the left lung. Background COPD. Remains on DuoNeb inhalations, Symbicort, Solu-Medrol, Singulair. He remains on antibiotics in the form of Zosyn. Glucose 181. Objective - Vital Signs Vital signs: Vital Signs Temp 97.6 F 12/04/23 12:48 Pulse 85 12/04/23 12:48 Resp 17 12/04/23 12:48 BP 128/72 12/04/23 12:48 Pulse Ox 93 L 12/04/23 12:48 FiO2 Intake & Output 12/03/23 12/04/23 12/04/23 18:59 06:59 18:59 Intake Total 118 Balance 118 Intake: Oral 118 Other: # Voids 3 - Exam GENERAL EXAM: Alert, pleasant 68-year-old male, on 2 L nasal cannula, comfortable in no apparent distress. HEAD: Normocephalic. EYES: Normal reaction of pupils, equal size. NOSE: Clear with pink turbinates. THROAT: No erythema or exudates. NECK: No masses, no JVD. CHEST: No chest wall deformity. LUNGS: Equal air entry with scattered rhonchi over the left lung. CVS: S1 and S2 normal with no audible murmur, regular rhythm. ABDOMEN: No hepatosplenomegaly, normal bowel sounds, no guarding or rigidity. SPINE: No scoliosis or deformity SKIN: No rashes CENTRAL NERVOUS SYSTEM: No focal deficits, tone is normal in all 4 extremities. EXTREMITIES: There is no peripheral edema. No clubbing, no cyanosis. Perip heral pulses are intact. - Labs CBC & Chem 7: 12/03/23 00:32 10/08/24 00:32 Labs: Abnormal Lab Results - Last 24 Hours (Table) 12/01/23 12/03/23 12/03/23 Range/Units 17:47 16:03 21:10 POC Glucose (mg/dL) 172 H 122 H (70-110) mg/dL Total PSA 8.7 H (<=4.0) ng/mL 12/04/23 12/04/23 Range/Units 05:50 11:46 POC Glucose (mg/dL) 114 H 181 H (70-110) mg/dL Total PSA (<=4.0) ng/mL Microbiology - Last 24 Hours (Table) 12/02/23 00:37 Gram Stain - Final Sputum Sputum Culture - Final 12/01/23 17:21 Blood Culture - Preliminary Blood Assessment and Plan Assessment: Left sided masslike consolidation and suspected community-acquired pneumonia. Possible mass, left lung. Acute COPD exacerbation. Acute on chronic hypoxemic respiratory failure. Acute febrile illness. Acute leukocytosis. Former tobacco dependence. History of hyperlipidemia. History of BPH. Plan: The patient was seen and evaluated Labs, chest x-ray and medications reviewed Improving but not quite back to baseline Continue Zosyn Continue bronchodilators, steroids Titrate the FiO2 as tolerated Increase his activity as tolerated We will continue to follow I have personally seen and examined the patient, performed the documentation and the assessment and plan as written. Number of minutes spent on the visit: 10.
[2023-12-04 16:40] LABS: Glucose,Whole Blood 152 mg/dL (70-110)
[2023-12-04] MEDS: methylPREDNISolone SOD SUCCI 40 MG/ML 1 ML VIAL IV SCH (17:47)
[2023-12-04 20:33] LABS: Glucose,Whole Blood 172 mg/dL (70-110)
--- NOTE | 2023-12-05 00:59 | PN ---
PROGRESS NOTE DATE OF SERVICE: 12/04/2023 SUBJECTIVE: This is a 68-year-old gentleman admitted with significant extensive pneumonia with masslike consolidations, improving significantly with bronchodilators and as well as empiric antibiotics. The chest x-ray showed significant improvement, but still lesions are noted and mycoplasma Legionella negative and COVID is also negative. OBJECTIVE: VITAL SIGNS: Pulse is 80, blood pressure 157/77, pulse ox 92% on 2 L. HEENT: Conjunctivae normal. CARDIOVASCULAR: S1, S2. RESPIRATIONS: Breath sounds diminished at the bases. A few scattered rhonchi and crackles. ABDOMEN: Soft. NERVOUS SYSTEM: Nonfocal. LABORATORY DATA: Noted. ASSESSMENT: 1. Severe shortness of breath, chronic obstructive pulmonary disease acute exacerbation. 2. Extensive left lung pneumonia with masslike consolidation, possibly gram-negative pneumonia. Rule out underlying malignancy. 3. History of prostate disorder. 4. Elevated procalcitonin. RECOMMENDATIONS: Recommend to continue current management and continue symptomatic treatment. Otherwise, at this time, I recommend current medications. The PSA level was 8.7. Previous values are not available for comparison, but however recommend close followup in the outpatient setting. Repeat labs. See orders for further details. MMODL / IJN: [id number] /
[2023-12-05 05:37] LABS: Glucose,Whole Blood 113 mg/dL (70-110)
[2023-12-05 08:57] LABS: Basophils # (A) 0.03 X 10*3/uL (0.00-0.10); Basophils % (A) 0.2 %; Eosinophils # (A) 0 X 10*3/uL (0.04-0.35); Eosinophils % (A) 0 %; HCT 32.7 % (39.6-50.0); HGB 10.7 g/dL (13.0-17.0); Lymphocytes # (A) 0.35 X 10*3/uL (0.90-5.00); Lymphocytes % (A) 2.8 %; MCH 26.9 pg (27.0-32.0); MCHC 32.7 g/dL (32.0-37.0); MCV 82.2 FL (80.0-97.0); Mean Platelet Volume 9.9 FL (9.5-12.2); Monocytes # (A) 0.54 X 10*3/uL (0.20-1.00); Monocytes % (A) 4.3 %; NRBC Per 100 WBC 0 X 10*3/uL (0.00-0.01); Neutrophils % (A) 91.7 %; Platelet Count 241 X 10*3/uL (140-440); RBC 3.98 X 10*6/uL (4.40-5.60); RDW 16.9 % (11.5-14.5); WBC 12.65 X 10*3/uL (4.50-10.00)
[2023-12-05 09:21] LABS: BUN/Creat Ratio 37.33 Ratio (12.00-20.00); Blood Urea Nitrogen 22.4 mg/dL (9.0-27.0); Carbon Dioxide 23.3 mmol/L (21.6-31.8); Chloride 106 mmol/L (96-109); Glucose 120 mg/dL (70-110); Potassium 4.3 mmol/L (3.5-5.5); Sodium 139 mmol/L (135-145)
[2023-12-05] MEDS: methylPREDNISolone SOD SUCCI 40 MG/ML 1 ML VIAL IV SCH (10:45)
--- NOTE | 2023-12-05 13:43 | P.PN ---
Subjective Progress Note Date: 12/05/23 Patient is a 68-year-old male with past medical history significant for COPD and former tobacco dependence. His primary care provider is Dr. Jarek Hartley. He does have history of severe COPD, follows with an out-of-town hat block maker Dr. Martin Cook. Utilizes a combination of Trelegy maintenance inhaler and albuterol rescue inhaler. Quit smoking approximately 4 years ago, prior to this was a heavy tobacco user 1 and half to 2 packs/day since he was a teenager. He does undergo low-dose lung cancer screening annually. Originally, presented to [facility] with shortness of breath that started 24 hours prior. He has had an associated cough with minimal yellow sputum production. He denied any nrz-rp-[id number] fevers, however, was febrile on arrival to our emergency department following transfer. Chest CT at outside facility showed a large masslike consolidation within the lingula suspicious for neoplasm. Along, with diffuse opacities within the remainder of the left upper lobe. Increased irregular density in the posterior right upper lung field. Neoplasm versus pneumonia in the differential. Patient does present with infectious-like symptoms. He does have an elevated white blood cell count 29.9. The remainder the CBC unremarkable. BMP includes a sodium 132, potassium 4, chloride 107, serum bicarb 18, BUN 17, creatinine 0.67, glucose 110. Troponin less than 0.012. He has been empirically covered on azithromycin and Zosyn. Patient is currently resting comfortably in bed. Not in any respiratory distress. Nontoxic appearance. He is on 3 L/min nasal cannula. Note, that he routinely uses 2.5 liters nasal cannula at bedtime at home. Did have a temperature of 100.1 F, however, afebrile at the moment. Sputum sample is collected and at bedside. He denies any history of cancer. Denies any familial history of lung cancer. Carries over [id number] smoking history. Denies any weight loss. Denies chest pain or hemoptysis. Denies sick contacts. Denies recent travel. Progress note dated December 03, 2023. 68-year-old male seen in the observation unit, room 151. He states that he is feeling better. He is on 2 L of oxygen. No IV fluids. His procalcitonin level was elevated at 2.20. He continues on Zosyn, we ordered a chest x-ray for hua akins. His cough is wet. Current labs include a white count 20.6, hemoglobin 12.1, hematocrit 36.0, and a normal platelet count. Sodium 135, potassium 3.8, chloride 107, CO2 22, BUN 23, creatinine 0.67. Glucose is 130. Thus far, culture data is negative. The patient is seen today December 04, 2023 in follow-up on the regular medical floor. He is currently sitting up in bed. Awake and alert in no acute distress. Breathing better today compared to yesterday. Less cough and congestion. He is maintaining O2 saturations in the 90s on 2 L/min per nasal cannula. Follow-up chest x-ray shows persistent but improving pneumonia throughout the left lung. Background COPD. Remains on DuoNeb inhalations, Symbicort, Solu-Medrol, Singulair. He remains on antibiotics in the form of Zosyn. Glucose 181. The patient is seen today December 05, 2023 in follow-up on the regular medical floor. Sitting up at the bedside. Awake and alert in no acute distress. Continues to feel better daily. Maintaining O2 saturations in the 90s on 2 L/min per nasal cannula. He continues on DuoNeb inhalations, Singulair, Symbicort, Solu-Medrol. Antibiotics in the form of Zosyn. Heparin for DVT prophylaxis. Sputum culture revealed no growth. White count 12.6. Hemoglobin 10.7. Platelets 241. Sodium 139. Potassium 4.3. Bicarb 23. BUN 23. Creatinine 0.6. Glucose 120. Objective - Vital Signs Vital signs: Vital Signs Temp 97.7 F 12/05/23 06:50 Pulse 70 12/05/23 12:16 Resp 18 12/05/23 06:50 BP 128/72 12/05/23 06:50 Pulse Ox 95 12/05/23 06:50 FiO2 Intake & Output 12/04/23 12/05/23 12/05/23 18:59 06:59 18:59 Other: Voiding Method Toilet # Voids 3 3 - Exam GENERAL EXAM: Alert, pleasant 68-year-old male, sitting at the bedside, on 2 L nasal cannula, in no apparent distress. HEAD: Normocephalic. EYES: Normal reaction of pupils, equal size. NOSE: Clear with pink turbinates. THROAT: No erythema or exudates. NECK: No masses, no JVD. CHEST: No chest wall deformity. LUNGS: Equal air entry with scattered rhonchi over the left lung. CVS: S1 and S2 normal with no audible murmur, regular rhythm. ABDOMEN: No hepatosplenomegaly, normal bowel sounds, no guarding or rigidity. SPINE: No scoliosis or deformity SKIN: No rashes CENTRAL NERVOUS SYSTEM: No focal deficits, tone is normal in all 4 extremities. EXTREMITIES: There is no peripheral edema. No clubbing, no cyanosis. Peripheral pulses are intact. - Labs CBC & Chem 7: 12/05/23 02:27 12/05/23 02:27 Labs: Abnormal Lab Results - Last 24 Hours (Table) 12/04/23 12/04/23 12/05/23 Range/Units 16:39 20:32 02:27 WBC 12.65 H (4.50-10.00) X 10*3/uL RBC 3.98 L (4.40-5.60) X 10*6/uL Hgb 10.7 L (13.0-17.0) g/dL Hct 32.7 L (39.6-50.0) % MCH 26.9 L (27.0-32.0) pg RDW 16.9 H (11.5-14.5) % Immature Gran # 0.13 H (0.00-0.04) X 10*3/uL Neutrophils # 11.60 H (1.80-7.70) X 10*3/uL Lymphocytes # 0.35 L (0.90-5.00) X 10*3/uL Eosinophils # 0 L (0.04-0.35) X 10*3/uL BUN/Creatinine Ratio (12.00-20.00) Ratio Glucose (70-110) mg/dL POC Glucose (mg/dL) 152 H 172 H (70-110) mg/dL Calcium (8.7-10.3) mg/dL 12/05/23 12/05/23 Range/Units 02:27 05:35 WBC (4.50-10.00) X 10*3/uL RBC (4.40-5.60) X 10*6/uL Hgb (13.0-17.0) g/dL Hct (39.6-50.0) % MCH (27.0-32.0) pg RDW (11.5-14.5) % Immature Gran # (0.00-0.04) X 10*3/uL Neutrophils # (1.80-7.70) X 10*3/uL Lymphocytes # (0.90-5.00) X 10*3/uL Eosinophils # (0.04-0.35) X 10*3/uL BUN/Creatinine Ratio 37.33 H (12.00-20.00) Ratio Glucose 120 H (70-110) mg/dL POC Glucose (mg/dL) 113 H (70-110) mg/dL Calcium 8.0 L (8.7-10.3) mg/dL Microbiology - Last 24 Hours (Table) 12/01/23 17:21 Blood Culture - Preliminary Blood Assessment and Plan Assessment: Left sided masslike consolidation and suspected community-acquired pneumonia. Possible mass, left lung. Acute COPD exacerbation. Acute on chronic hypoxemic respiratory failure. Acute febrile illness. Acute leukocytosis. Former tobacco dependence. History of hyperlipidemia. History of BPH. Plan: The patient was seen and evaluated Labs and medications reviewed Improving but not quite back to baseline Continue Zosyn Continue bronchodilators, steroids Titrate the FiO2 as tolerated Increase his activity as tolerated Follow-up chest x-ray in a.m. We will continue to follow I have personally seen and examined the patient, performed the documentation and the assessment and plan as written. Number of minutes spent on the visit: 10.
[2023-12-05 21:37] LABS: Glucose,Whole Blood 190 mg/dL (70-110)
[2023-12-05 21:37] LABS: Glucose,Whole Blood 94 mg/dL (70-110)
[2023-12-05 21:37] LABS: Glucose,Whole Blood 131 mg/dL (70-110)
--- NOTE | 2023-12-05 22:17 | PN ---
PROGRESS NOTE DATE OF SERVICE: 12/05/2023 SUBJECTIVE: This is a 68-year-old gentleman who was admitted with COPD acute exacerbation, also extensive pneumonia. No chest pain. No palpitation. OBJECTIVE: VITAL SIGNS: Pulse is 76, blood pressure 128/74, respirations 18. CHEST: A few scattered rhonchi and crackles. ABDOMEN: Soft. NERVOUS SYSTEM: Nonfocal. LABORATORY DATA: Reviewed. ASSESSMENT: 1. Severe shortness of breath, chronic obstructive pulmonary disease acute exacerbation. 2. Extensive left lung pneumonia with masslike consolidation possibly gram-negative pneumonia. Rule out underlying malignancy. 3. History of prostate disorder with elevated PSA. 4. Elevated procalcitonin. RECOMMENDATIONS: Recommend to continue current management and continue symptomatic treatment. Continue to follow with Urology outpatient. Otherwise, repeat labs. Closely follow with Pulmonary. Possible discharge in the next 24 to 48 hours. Prognosis guarded. MMODL / IJN: [id number] /
[2023-12-06 07:01] LABS: Glucose,Whole Blood 88 mg/dL (70-110)
[2023-12-06 07:27] VITALS: BP 160/72; RESP 18; TEMP 97.5
--- NOTE | 2023-12-06 08:39 | XR ---
EXAMINATION TYPE: XR chest 2V DATE OF EXAM: 12/06/2023 COMPARISON: 12/04/2023 HISTORY: 68-year-old male follow-up pneumonia TECHNIQUE: PA and lateral views FINDINGS: Heart normal size. Aorta within normal limits. Hyperinflation. Extensive airspace opacity throughout the left upper lobe and additional interstitial infiltrate within the left lower lung persist without significant change. Patchy opacity at the right lower lung is slightly more defined now. No pleural effusion. IMPRESSION: 1. COPD with moderate to advanced emphysema. 2. Extensive pneumonia persists on the left. 3. Possible second area of developing infiltrate at the right base. [facility], , 12/06/2023 8:37 AM
[2023-12-06 08:50] LABS: BUN/Creat Ratio 28.17 Ratio (12.00-20.00); Basophils # (A) 0.03 X 10*3/uL (0.00-0.10); Basophils % (A) 0.2 %; Blood Urea Nitrogen 16.9 mg/dL (9.0-27.0); Calcium 7.9 mg/dL (8.7-10.3); Carbon Dioxide 23.4 mmol/L (21.6-31.8); Chloride 105 mmol/L (96-109); Eosinophils # (A) 0 X 10*3/uL (0.04-0.35); Eosinophils % (A) 0 %; Glucose 119 mg/dL (70-110); HCT 34.8 % (39.6-50.0); HGB 11.3 g/dL (13.0-17.0); Lymphocytes # (A) 0.42 X 10*3/uL (0.90-5.00); Lymphocytes % (A) 2.8 %; MCH 26.3 pg (27.0-32.0); MCHC 32.5 g/dL (32.0-37.0); MCV 80.9 FL (80.0-97.0); Mean Platelet Volume 9.6 FL (9.5-12.2); Monocytes # (A) 0.56 X 10*3/uL (0.20-1.00); Monocytes % (A) 3.7 %; NRBC Per 100 WBC 0 X 10*3/uL (0.00-0.01); Neutrophils # (A) 13.87 X 10*3/uL (1.80-7.70); Neutrophils % (A) 91.8 %; Platelet Count 220 X 10*3/uL (140-440); Potassium 4.5 mmol/L (3.5-5.5); RDW 16.9 % (11.5-14.5); Sodium 138 mmol/L (135-145)
[2023-12-06 09:14] VITALS: BMI 22.6
[2023-12-06] MEDS: predniSONE 10 MG TAB PO SCH (09:22)
[2023-12-06] MEDS: AMOXIC-POT CLAV 875-125MG 1 EACH TAB PO SCH (09:44)
[2023-12-06 11:35] LABS: Glucose,Whole Blood 129 mg/dL (70-110)
--- NOTE | 2023-12-06 12:29 | P.PN ---
Subjective Progress Note Date: 12/06/23 Principal diagnosis: Pneumonia. Patient is a 68-year-old male with past medical history significant for COPD and former tobacco dependence. His primary care provider is Dr. Jarek Hartley. He does have history of severe COPD, follows with an out-of-town bowling ball marker Dr. Martin Cook. Utilizes a combination of Trelegy maintenance inhaler and albuterol rescue inhaler. Quit smoking approximately 4 years ago, prior to this was a heavy tobacco user 1 and half to 2 packs/day since he was a teenager. He does undergo low-dose lung cancer screening annually. Originally, presented to [facility] with shortness of breath that started 24 hours prior. He has had an associated cough with minimal yellow sputum production. He denied any [id number] fevers, however, was febrile on arrival to our emergency department following transfer. Chest CT at outside facility showed a large masslike consolidation within the lingula suspicious for neoplasm. Along, with diffuse opacities within the remainder of the left upper lobe. Increased irregular density in the posterior right upper lung field. Neoplasm versus pneumonia in the differential. Patient does present with infectious-like symptoms. He does have an elevated white blood cell count 29.9. The remainder the CBC unremarkable. BMP includes a sodium 132, potassium 4, chloride 107, serum bicarb 18, BUN 17, creatinine 0.67, glucose 110. Troponin less than 0.012. He has been empirically covered on azithromycin and Zosyn. Patient is currently resting comfortably in bed. Not in any respiratory distress. Nontoxic appearance. He is on 3 L/min nasal cannula. Note, that he routinely uses 2.5 liters nasal cannula at bedtime at home. Did have a temperature of 100.1 F, however, afebrile at the moment. Sputum sample is collected and at bedside. He denies any history of cancer. Denies any familial history of lung cancer. Carries over [id number] smoking history. Denies any weight loss. Denies chest pain or hemoptysis. Denies sick contacts. Denies recent travel. Progress note dated December 03, 2023. 68-year-old male seen in the observation unit, room 151. He states that he is feeling better. He is on 2 L of oxygen. No IV fluids. His procalcitonin level was elevated at 2.20. He continues on Zosyn, we ordered a chest x-ray for tomorrow. His cough is wet. Current labs include a white count 20.6, hemoglobin 12.1, hematocrit 36.0, and a normal platelet count. Sodium 135, potassium 3.8, chloride 107, CO2 22, BUN 23, creatinine 0.67. Glucose is 130. Thus far, culture data is negative. The patient is seen today December 04, 2023 in follow-up on the regular medical f pelon. He is currently sitting up in bed. Awake and alert in no acute distress. Breathing better today compared to yesterday. Less cough and congestion. He is maintaining O2 saturations in the 90s on 2 L/min per nasal cannula. Follow- up chest x-ray shows persistent but improving pneumonia throughout the left lung. Background COPD. Remains on DuoNeb inhalations, Symbicort, Solu-Medrol, Singulair. He remains on antibiotics in the form of Zosyn. Glucose 181. The patient is seen today December 05, 2023 in follow-up on the regular medical floor. Sitting up at the bedside. Awake and alert in no acute distress. Continues to feel better daily. Maintaining O2 saturations in the 90s on 2 L /min per nasal cannula. He continues on DuoNeb inhalations, Singulair, Symbicort, Solu-Medrol. Antibiotics in the form of Zosyn. Heparin for DVT prophylaxis. Sputum culture revealed no growth. White count 12.6. Hemoglobin 10.7. Platelets 241. Sodium 139. Potassium 4.3. Bicarb 23. BUN 23. Creatinine 0.6. Glucose 120. Progress note dated December 06, 2023. 68-year-old male seen today in room 451. Clinically he is much improved. The patient does have shortness of breath when he exerts himself. The patient does have oxygen at home. He is currently on 2 L. The patient is not receiving any IV fluids. Solu-Medrol was converted over to prednisone, and, he can go home on Augmentin 875 twice a day. I have asked him to see me in the office, for follow-up. His left chest is improving radiographically, but infiltrates persist. We want to make sure that he has a complete resolution, as he may have a mass on the left chest, which will need follow-up. Current labs include a whi te count 15.1, hemoglobin 11.3, hematocrit 34.8, and a normal platelet count. Electrolytes are all relatively normal. BUN and creatinine were 16.9 and 0.6 respectively. Calcium 7.9. Glucose 129. Chest x-ray is officially read, suggest COPD, with persistent infiltrates on the left. Objective - Vital Signs Vital signs: Vital Signs Temp 97.5 F L 12/06/23 06:50 Pulse 72 12/06/23 12:20 Resp 18 12/06/23 06:50 BP 160/72 12/06/23 06:50 Pulse Ox 94 L 12/06/23 09:28 FiO2 Intake & Output 12/05/23 12/06/23 12/06/23 18:59 06:59 18:59 Intake Total 1300 Balance 1300 Weight 67.585 kg Intake: Oral 1300 Other: Voiding Method Toilet # Voids 3 5 - Exam No acute distress, oriented 3. No respiratory distress. Cough is wet and congested. Currently on nasal O2 at 2 L. HEENT examination is grossly unremarkable. Mucous membranes are moist. No oral lesions. Neck supple. Full range of motion. No adenopathy thyromegaly or neck vein distention. Cardiovascular examination reveals regular rhythm rate. S1-S2 normal. No S3 or S4. No discernible murmur noted. Lungs reveal bilateral rhonchi. No wheezes or crackles. 2 L saturation is 97 %. Abdomen soft bowel sounds are heard. No masses or tenderness. Extremities are intact. No cyanosis clubbing or edema. Skin is without rash or lesion. Neurologic examination is brief but nonfocal. - Labs CBC & Chem 7: 12/06/23 02:44 12/06/23 02:44 Labs: Abnormal Lab Results - Last 24 Hours (Table) 12/05/23 12/05/23 12/06/23 Range/Units 16:45 21:35 02:44 WBC 15.10 H (4.50-10.00) X 10*3/uL RBC 4.30 L (4.40-5.60) X 10*6/uL Hgb 11.3 L (13.0-17.0) g/dL Hct 34.8 L (39.6-50.0) % MCH 26.3 L (27.0-32.0) pg RDW 16.9 H (11.5-14.5) % Immature Gran # 0.22 H (0.00-0.04) X 10*3/uL Neutrophils # 13.87 H (1.80-7.70) X 10*3/uL Lymphocytes # 0.42 L (0.90-5.00) X 10*3/uL Eosinophils # 0 L (0.04-0.35) X 10*3/uL BUN/Creatinine Ratio (12.00-20.00) Ratio Glucose (70-110) mg/dL POC Glucose (mg/dL) 190 H 131 H (70-110) mg/dL Calcium (8.7-10.3) mg/dL 12/06/23 12/06/23 Range/Units 02:44 11:34 WBC (4.50-10.00) X 10*3/uL RBC (4.40-5.60) X 10*6/uL Hgb (13.0-17.0) g/dL Hct (39.6-50.0) % MCH (27.0-32.0) pg RDW (11.5-14.5) % Immature Gran # (0.00-0.04) X 10*3/uL Neutrophils # (1.80-7.70) X 10*3/uL Lymphocytes # (0.90-5.00) X 10*3/uL Eosinophils # (0.04-0.35) X 10*3/uL BUN/Creatinine Ratio 28.17 H (12.00-20.00) Ratio Glucose 119 H (70-110) mg/dL POC Glucose (mg/dL) 129 H (70-110) mg/dL Calcium 7.9 L (8.7-10.3) mg/dL Assessment and Plan Assessment: Left sided masslike consolidation and suspected community-acquired pneumonia. Possible mass, left lung. Acute COPD exacerbation. Acute on chronic hypoxemic respiratory failure. Acute febrile illness. Acute leukocytosis. Former tobacco dependence. History of hyperlipidemia. History of BPH. Plan: Plan dated December 03, 2023. The patient is seen today in room 151. The patient is on 2 L. He is feeling better. His procalcitonin level was elevated 2.20. He continues on Zosyn. He is feeling better. No IV fluids. A chest x-ray is ordered for tomorrow. I mention to him today, that pneumonia, the gets better with antibiotics, is pne umonia. Pneumonia that does not get better with antibiotics, means something else, in this case, possible cancer. Additional recommendations and suggestions are forthcoming. We will continue to follow. Plan dated December 06, 2023. Clinically, the patient is much improved, and radiographically, he is also much improved. Persistent infiltrates are noted on the left. There may be a mass on the left. The patient will follow-up with me in the office. Solu-Medrol was converted to prednisone. The patient could be discharged home on Augmentin. I will see him in the office, for PFTs, and further characterization of his COPD, as well as follow-up as a relates to his left-sided pneumonia. He also may benefit from an outpatient PET scan. Time with Patient: Less than 30
[2023-12-06 12:32] VITALS: PULSE 70
--- NOTE | 2023-12-09 12:27 | P.DS ---
Providers Date of admission: 12/01/23 17:14 Expected date of discharge: 12/06/23 Attending physician: Dilshad Darden Consults: 12/01/23 17:12 Consult Physician Routine Consulting Provider: Aisha Grayson Consult Reason/Comments: Lung mass Do you want consulting provider notified?: Yes 12/01/23 17:13 Consult Physician Routine Consulting Provider: Elva Way Consult Reason/Comments: Pneumonia, lung mass Do you want consulting provider notified?: Yes [facility] care physician: [facility] Course: Final diagnosis Severe shortness of breath, chronic obstructive pulmonary disease, acute exacerbation Extensive left lung pneumonia with masslike consolidation possibly gram-negative pneumonia, rule out underlying malignancy. Patient will need follow-up CT scan and pulmonary follow-up in the next few weeks outpatient History of prostate disorder with elevated PSA Elevated procalcitonin Former smoker GI prophylaxis DVT prophylaxis Full code Discharge disposition Patient is being discharged in a stable condition with guarded prognosis to home. Patient will follow-up with Dr. Hartley in the outpatient setting upon discharge. Patient is to continue with prednisone taper along with antibiotics and continued inhalers and DuoNeb treatments with close outpatient follow-up with pulmonary as scheduled. Patient does have a boot and saddle repair person although is extremely difficult to get to due to the long travel and will likely be reestablishing with Dr. Ortiz here in the outpatient setting. Total time taken is greater than 35 minutes. Hospital course This is a 68-year-old male who was recently admitted with COPD exacerbation along with increased shortness of breath with extensive pneumonia. Patient being closely monitored with pulmonary following maintained on IV steroids along with antibiotics and continue DuoNebs. Patient showing some slow clinical improvement chronically wears oxygen outpatient although reports to feeling significantly improved. Patient has been cleared by pulmonary for outpatient follow-up and will follow-up with Dr. Ortiz in the outpatient setting. Patient to continue on oral antibiotics on discharge and also instructed to follow-up with primary care provider on discharge. Please refer to other consultation notes for further HPI. Currently no reports of chest pain, shortness of breath, or palpitations. Patient is afebrile. No reports of nausea or vomiting and patient is tolerating diet. Patient will be discharged home today. Guarded prognosis Physical exam: Gen: This is a 68-year-old male who is awake, alert and oriented x 3, thin built, elderly appearing HEENT: Head is atraumatic, normocephalic. Pupils equal, round. Sclerae is anicteric. NECK: Supple. No JVD. No lymphadenopathy. No thyromegaly. LUNGS: Diminished breath sounds bilaterally with a few scattered expiratory wheezes and rhonchi noted. No intercostal retractions. HEART: S1, S2 are muffled ABDOMEN: Soft. Thin. Bowel sounds are present. No masses. No tenderness. EXTREMITIES: No pedal edema. No calf tenderness. NEUROLOGICAL: Patient is awake, alert and oriented x3. Cranial nerves 2 through 12 are grossly intact. Please refer to medication reconciliation sheet for a list of medications. The impression and plan of care has been dictated by Danyell Portillo, Nurse Practitioner as directed. Dr. Adelso MD I have performed a history and examination and MDM of this patient, discussed the same with the dictator, and agree with the dictator's assessment and plan as written ,documented as a scribe. Based on total visit time, I have performed more than 50% of the visit. Patient Condition at Discharge: Stable Plan - Discharge Summary Discharge Rx Participant: No New Discharge Prescriptions: New Amoxic-Pot Clav 875-125Mg [Augmentin 875-125] 1 each PO Q12HR 10 Days #20 tab Ipratropium-Albuterol Nebulize [Duoneb 0.5 mg-3 mg/3 ml Soln] 3 ml INHALATION RT-QID #100 each Acetaminophen Tab [Tylenol] 650 mg PO Q6HR PRN tab PRN Reason: Fever And/ Or Pain predniSONE See Taper PO DIRECTED #30 tab Continue Montelukast [Singulair] 10 mg PO DAILY Fluticasone/Umeclidin/Vilanter [Trelegy Ellipta 200-62.5-25] 1 puff INHALATION RT-DAILY Albuterol Sulfate [Albuterol Sulfate Hfa] 2 puff PO RT-Q6H PRN PRN Reason: Shortness Of Breath Tamsulosin [Flomax] 0.4 mg PO DAILY Atorvastatin [Lipitor] 20 mg PO DAILY Aspirin EC [Ecotrin Low Dose] 81 mg PO DAILY Discontinued predniSONE [Deltasone] 20 mg PO DAILY PRN PRN Reason: Breathing problems Discharge Medication List Albuterol Sulfate [Albuterol Sulfate Hfa] 2 puff PO RT-Q6H PRN 12/01/23 [History] Aspirin EC [Ecotrin Low Dose] 81 mg PO DAILY 12/01/23 [History] Atorvastatin [Lipitor] 20 mg PO DAILY 12/01/23 [History] Fluticasone/Umeclidin/Vilanter [Trelegy Ellipta 200-62.5-25] 1 puff INHALATION RT-DAILY 12/01/23 [History] Montelukast [Singulair] 10 mg PO DAILY 12/01/23 [History] Tamsulosin [Flomax] 0.4 mg PO DAILY 12/01/23 [History] Acetaminophen Tab [Tylenol] 650 mg PO Q6HR PRN tab 12/06/23 [Rx] Amoxic-Pot Clav 875-125Mg [Augmentin 875-125] 1 each PO Q12HR 10 Days #20 tab 12/06/23 [Rx] Ipratropium-Albuterol Nebulize [Duoneb 0.5 mg-3 mg/3 ml Soln] 3 ml INHALATION RT-QID #100 each 12/06/23 [Rx] predniSONE See Taper PO DIRECTED #30 tab 12/06/23 [Rx] Follow up Appointment(s)/Referral(s): Ayo Ortiz DO [Doctor of Osteopathic Medicine] - 01/02/24 2:00 pm Jarek Hartley MD [Primary Care Provider] - 1-2 days (Office closed. Please call to make your appointment.) Activity/Diet/Wound Care/Special Instructions: Activity limited until follow-up Follow-up with primary care provider on discharge Follow-up with pulmonary Dr. Ortiz in 2 to 3 weeks Continue prednisone taper Continue taking medications as prescribed Continue using incentive spirometer at least 10 times every hour while awake avoid sick people with people that are coughing and wear a mask while out Discharge Disposition: HOME SELF-CARE
== END 2023-12-06 13:22 | disposition home or self-care (01) | DRG 177 ==
LOC: EC 15:10 → 5NMEDONC 17:14 → 1SOBS 19:49 → 4SSUR 12-03 18:12
PROVIDERS: ADMIT Hospitalist; ATTEND Hospitalist
PROC: 3E0F7SF Introduction of Other Gas into Respiratory Tract, Via Natural or Artificial Opening (ICD-10-PCS; principal; 2023-12-01)
DX: J15.69 Pneumonia due to other Gram-negative bacteria (principal); J96.21 Acute and chronic respiratory failure with hypoxia; J44.0 Chronic obstructive pulmonary disease with (acute) lower respiratory infection; J44.1 Chronic obstructive pulmonary disease with (acute) exacerbation; F17.210 Nicotine dependence, cigarettes, uncomplicated; N40.0 Benign prostatic hyperplasia without lower urinary tract symptoms; E78.5 Hyperlipidemia, unspecified; Z79.52 Long term (current) use of systemic steroids; Z79.82 Long term (current) use of aspirin; R91.8 Other nonspecific abnormal finding of lung field; Z79.899 Other long term (current) drug therapy; Z87.19 Personal history of other diseases of the digestive system
CPT/HCPCS: 36415; 71045; 71046; 71275; 80048; 80053; 81001; 83036; 84145; 84153; 84154; 84484; 85025; 85379; 86738; 87040; 87070; 87205; 87449; 87636; 93005; 94640; 94760; 96365; 96366; 96372; 96375; 99285

== ENCOUNTER → 2024-01-16 | Outpatient (CLI) | payer MEDICARE ==
--- NOTE | 2024-01-21 11:22 | PE ---
EXAMINATION TYPE: PET CT fusion skull to thigh DATE OF EXAM: 01/16/2024 CLINICAL INDICATION:Male, 68 years old with history of R91.8 LUNG NODULE; right upper lobe nodule. TECHNIQUE: Following the intravenous administration of 11.75 mCi of F-18 FDG, whole body images are performed from the skull base to the midthigh. Images are reviewed on the computer in the coronal, axial, and sagittal planes. Reconstructed rotating images are created on independent workstation and reviewed on the computer. A non-contrast CT is performed in conjunction with the PET scan. Glucose level 92 mg/dL CT DLP: 432.93 mGycm, Automated exposure control for dose reduction was used. COMPARISON: CT 12/02/2023, PET/CT None, MRI: None FINDINGS: Mediastinal SUV mean is 1.7. Hepatic parenchyma SUV mean is 2.2. SKULL BASE AND NECK: No suspicious radiotracer activity. CHEST, MEDIASTINUM, AND HILAR REGION: * Extensive consolidation in the left lung anteriorly with bronchovascular crowding with FDG uptake max SUV 14.3. Posteriorly in the left upper lung near the apex (4.5. * Spiculated suspected scarring in the right upper lung max SUV 2.6 ABDOMEN AND PELVIS: No suspicious radiotracer activity. MUSCULOSKELETAL STRUCTURES: No suspicious radiotracer activity. OTHER CT: Motion limited abdomen and pelvis. * Carotid bifurcation atherosclerosis. * Coronary atherosclerosis. * Colonic diverticulosis. * Hyperdense left renal lesion measuring 8 mm. most compatible with pernicious/hemorrhagic cyst * Right renal cortical cyst. * Severe degeneration changes of the shoulders. IMPRESSION: 1. Left upper lung consolidation with bronchovascular crowding at this time infection is favored ove r malignancy. This is improved from prior CT on 12/02/2023 Clinical correlation and additional short-t erm follow-up recommended in 3 months. 2. Right upper lung spiculated mass is felt to represent scarring. Attention on short-term follow up imaging in [address] chest with IV contrast. [facility], , 01/21/2024 11:20 AM
== END | disposition home or self-care (01) ==
LOC: RADPETMAIN 07:44
PROVIDERS: ATTEND Internal Medicine Critical Care Medicine
DX: R91.8 Other nonspecific abnormal finding of lung field (principal); N28.1 Cyst of kidney, acquired; K57.30 Diverticulosis of large intestine without perforation or abscess without bleeding; I25.10 Atherosclerotic heart disease of native coronary artery without angina pectoris
CPT/HCPCS: 78815; A9552

== ENCOUNTER → 2024-05-05 | Outpatient (CLI) | payer MEDICARE ==
[2024-05-05 10:51] LABS: African American GFR (CKD) >90 (>60 ml/min/1.73 sqM); Blood Urea Nitrogen 13 mg/dL (9-20); Non-African American GFR(CKD) >90 (>60 ml/min/1.73 sqM)
--- NOTE | 2024-05-05 11:44 | CT ---
EXAMINATION TYPE: CT chest w con DATE OF EXAM: 05/05/2024 11:28 AM COMPARISON: 01/16/2024 CLINICAL INDICATION: Male, 68 years old with history of R91.8 OTHER NONSPECIFIC ABNORMAL FINDING OF L ROBBIN F; PHH, Abnormal findings of lung stevenson, hx COPD, PNE TECHNIQUE: Multiple axial images were obtained through the chest. Sagittal and coronal reformats were created for review. MIP was performed on a separate workstation. Contrast used:100 mL of Isovue 300 with IV Contrast (None if empty) Oral contrast used: (None if empty) CT DLP: 309.30 mGycm, Automated exposure control for dose reduction was used. FINDINGS: LUNGS/ PLEURA: Left upper lobe consolidation which is not significantly changed from 01/16/2024 predo minantly along the periphery. Right upper lobe moderate severe centrilobular emphysema with scarring changes which may has slightly more consolidated appearance on today's exam measuring No evidence for pneumothorax or pleural effusion. Right upper lung lateral aspect increased interstitial prominence with some areas of nodular-like densities that represent infectious/inflammatory process. AIRWAY: Patent and unremarkable. HEART: Size within normal limits.Moderate to severe coronary artery and aortic valve calcifications. MEDIASTINUM: No gross evidence of adenopathy. VASCULATURE: Atherosclerotic calcifications are present throughout the aorta and its branches. MUSCULOSKELETAL: Mild disc degeneration changes are present throughout the thoracolumbar spine second joey to osteophyte formation and facet joint arthropathy. SOFT TISSUES/LYMPH NODES: Unremarkable. LOWER NECK: No significant findings. UPPER ABDOMEN: No significant findings. IMPRESSION: 1. Increased soft tissue component of the right upper lobe possible area of scarring measuring 12 x 9 mm in today's exam. Consider PET/CT. 2. The area in the left anterior chest wall is not significantly changed morphology. 3. Somewhat spiculated scattered nodular densities in the lateral aspect of the right lung possibly emphysema with superimposed infectious/inflammatory process. Attention follow-up imaging. 4. Moderate to severe coronary artery and aortic valve calcifications. [facility], , 05/05/2024 11:42 AM
== END | disposition home or self-care (01) ==
LOC: RADCTMAIN 10:10
PROVIDERS: ATTEND Internal Medicine Critical Care Medicine
DX: J98.4 Other disorders of lung (principal); R91.1 Solitary pulmonary nodule; I25.10 Atherosclerotic heart disease of native coronary artery without angina pectoris; R91.8 Other nonspecific abnormal finding of lung field
CPT/HCPCS: 82565; 84520; 71260; Q9967